=== PATIENT | male | born 1960 | race Caucasian/White ===

== ENCOUNTER 2017-12-29 17:43 | Emergency (ER) | payer BC ==
[2017-12-29 18:29] VITALS: BP 113/77
[2017-12-29] MEDS ORDERED: Tetan/Diph/Pertus SYR(Tdap)* 0.5 ML SYR(BOOSTRIX) use SYR IM ONE (18:48)
--- NOTE | 2017-12-29 18:50 | ED ---
GI/ HPI - HPI Summary HPI Summary: 57 yr old male with the complaint of itching and erosion on the shaft of the penis. He is complaining that he started itching his penis on Friday and he feels like he has a yeast infection. Denies being diabetic. Denies penile drainge, dysuria. Denies scrotal pain. Denies inguinal pain or swelling. No fever. He also states he scratched his left forearm yesterday on milk truck. Need TDAP updated. - History of Current Complaint Chief Complaint: UCSkin Time Seen by Provider: 12/29/17 18:41 Stated Complaint: PERSONAL Pain Intensity: 5 - Allergy/Home Medications Allergies/Adverse Reactions: Allergies Allergy/AdvReac Type Severity Reaction Status Date / Time No Known Allergies Allergy Verified 12/29/17 18:18 Home Medications: Home Medications Atorvastatin* [Lipitor*] 40 mg PO QPM 12/29/17 [History Confirmed 12/29/17] Sulfamethox/Trimethoprim DS* [Bactrim DS 800/160 TAB*] 1 tab PO BID 12/29/17 [ History Confirmed 12/29/17] PMH/Surg Hx/FS Hx/Imm Hx - Surgical History Surgery Procedure, Year, and Place: left knee medial meniscus 1986 Infectious Disease History: No Infectious Disease History: Reports: History Other Infectious Disease - STAP Denies: Traveled Outside the [place] in Last 30 Days - Social History Occupation: Employed Full-time Lives: With Family Alcohol Use: Rare Substance Use Type: Reports: None Smoking Status (MU): Heavy Every Day Tobacco Smoker Type: eCigarettes Amount Used/How Often: 3/4 ppd on & off since 17 yo Length of Time of Smoking/Using Tobacco: since age 17 Review of Systems Constitutional: Negative Positive: Rash - to skin All Other Systems Reviewed And Are Negative: Yes Physical Exam Triage Information Reviewed: Yes Vital Signs On Initial Exam: Initial Vitals Temp Pulse Resp BP Pulse Ox 98.2 F 57 16 113/77 100 12/29/17 18:20 12/29/17 18:20 12/29/17 18:20 12/29/17 18:20 12/29/17 18:20 Vital Signs Reviewed: Yes Appearance: Positive: Well-Appearing, No Pain Distress Skin: Positive: Warm, Other - rash to the skin on penis near sexton that is wet , eroded, and appears consitent with akshat. No ulcer. No drainage. No urethral drainage. no testicular pain, No scrotal swelling or pain. He has superficial laceration left forearm. Head/Face: Positive: Normal Head/Face Inspection Neck: Positive: Nontender Respiratory/Lung Sounds: Positive: Clear to Auscultation, Breath Sounds Present Cardiovascular: Positive: RRR. Negative: Murmur Male Genital Exam: Positive: other - akshat like rash/erosion near sexton of penis on the skin shaft.. Negative: no hernia, epididymal tenderness, inguinal tenderness, scrotum tenderness (R), scrotum tenderness (L), testicular tenderness (R), testicular tenderness (L), urethral discharge Musculoskeletal: Positive: Strength/ROM Intact Neurological: Positive: Sensory/Motor Intact, Alert, Oriented to Person Place, Time, CN Intact II-III Diagnostics - Vital Signs Vital Signs Temp Pulse Resp BP Pulse Ox 12/29/17 18:20 98.2 F 57 16 113/77 100 - Laboratory Lab Statement: Any lab studies that have been ordered have been reviewed, and results considered in the medical decision making process. GIGU Course/Dx - Course Course Of Treatment: 57 yr old with akshat on penis. Has superficial lac to left arm. TDAP updated. miconazole recommended. - Diagnoses Provider Diagnoses: Candidiasis of penis, Laceration Discharge - Discharge Plan Condition: Good Disposition: HOME Patient Education Materials: Laceration (ED), Jock Itch (ED) Referrals: James Powers [Primary Care Provider] - Additional Instructions: warehouse order picker miconazole cream and miconazole powder and use twice a day. Go to the ER for further evaluation.
== END 2017-12-29 19:05 | disposition home or self-care (01) ==
LOC: UCCORT 17:43
DX: B37.49 Other urogenital candidiasis (principal); S51.812A Laceration without foreign body of left forearm, initial encounter; W22.8XXA Striking against or struck by other objects, initial encounter; Y93.9 Activity, unspecified; Y92.9 Unspecified place or not applicable; F17.210 Nicotine dependence, cigarettes, uncomplicated
CPT/HCPCS: 90715; 96372; 99211; G0463

== ENCOUNTER 2018-03-04 20:50 | Emergency (ER) | payer SELFPAY ==
[2018-03-04 21:04] VITALS: BP 130/82
[2018-03-04] MEDS ORDERED: Sulfamethox/Trimethoprim DS 800/160* TAB PO ONE (21:15)
--- NOTE | 2018-04-13 09:04 | UC ---
Skin Complaint HPI - HPI Summary HPI Summary: Pt c/o f "spots" on back of nveck. Pt wears ad hard hat and states that it "rubs " against skin on neck. - History of Current Complaint Hx Obtained From: Patient Onset/Duration: Gradual Onset, Lasting Days, Still Present Skin Exposure Onset/Duration: Days Ago Timing: Constant Onset Severity: Mild Current Severity: Mild Pain Intensity: 0 Pain Scale Used: 0-10 Numeric Location: Discrete Character: Redness, Raised, Painful Aggravating Factor(s): Touch Alleviating Factor(s): Nothing Associated Signs & Symptoms: Positive: Tenderness <Cyndi Hunt NP - Last Filed: 04/15/18 10:16> <Alee Chris - Last Filed: 04/15/18 10:20> - History of Current Complaint Chief Complaint: UCRash Time Seen by Provider: 03/04/18 21:07 Stated Complaint: SKIN COMPLAINT - Allergy/Home Medications Allergies/Adverse Reactions: Allergies Allergy/AdvReac Type Severity Reaction Status Date / Time No Known Allergies Allergy Verified 12/29/17 18:18 Home Medications: Home Medications Ibuprofen 800 mg PO Q6HR 03/04/18 [History Confirmed 03/04/18] Review of Systems Constitutional: Negative Skin: Other - sores on neck Eyes: Negative ENT: Negative Respiratory: Negative Cardiovascular: Negative Gastrointestinal: Negative Genitourinary: Negative Motor: Negative Neurovascular: Negative Musculoskeletal: Negative Neurological: Negative Psychological: Negative Is Patient Immunocompromised?: No All Other Systems Reviewed And Are Negative: Yes <Cyndi Hunt NP - Last Filed: 04/15/18 10:16> PMH/Surg Hx/FS Hx/Imm Hx Previously Healthy: Yes - Surgical History Surgical History: Yes Surgery Procedure, Year, and Place: left knee medial meniscus 1986. TONSILLECTOMY - Social History Occupation: Employed Full-time Lives: With Family Alcohol Use: Rare Substance Use Type: None Smoking Status (MU): Former Smoker Type: eCigarettes Amount Used/How Often: 3/4 ppd on & off since 17 yo Length of Time of Smoking/Using Tobacco: since age 17 Have You Smoked in the Last Year: Yes When Did the Patient Quit Smoking/Using Tobacco: 6 MO AGO Household Exposure Type: Cigarettes - Immunization History Most Recent Tetanus Shot: 2008 <Cyndi Hunt NP - Last Filed: 04/15/18 10:16> Physical Exam Triage Information Reviewed: Yes Appearance: Well-Appearing Vital Signs: Initial Vital Signs Temp 98.1 F 03/04/18 20:59 Pulse 64 03/04/18 20:59 Resp 15 03/04/18 20:59 BP 130/82 03/04/18 20:59 Pulse Ox 99 03/04/18 20:59 Vital Signs Reviewed: Yes Eye Exam: Normal ENT Exam: Normal Dental Exam: Normal Neck exam: Other Neck: Positive: Other: - multiple sores on posterior neck Respiratory Exam: Normal Respiratory: Positive: No respiratory distress Musculoskeletal Exam: Normal Neurological Exam: Normal Psychological Exam: Normal Skin Exam: Other - multiple sores on neck <Cyndi Hunt NP - Last Filed: 04/15/18 10:16> Vital Signs: Initial Vital Signs Temp 98.1 F 03/04/18 20:59 Pulse 64 03/04/18 20:59 Resp 15 03/04/18 20:59 BP 130/82 03/04/18 20:59 Pulse Ox 99 03/04/18 20:59 <Alee Chris - Last Filed: 04/15/18 10:20> Course/Dx - Differential Diagnoses - Skin Complaint Differential Diagnoses: Cellulitis, MRSA - Diagnoses Provider Diagnoses: infected wound. possible MRSA <Cyndi Hunt NP - Last Filed: 04/15/18 10:16> Discharge - Sign-Out/Discharge Documenting (check all that apply): Discharge/Admit/Transfer - Billing Disposition and Condition Condition: STABLE Disposition: Home <Cyndi Hunt NP - Last Filed: 04/15/18 10:16> - Billing Disposition and Condition Condition: STABLE Disposition: Home <Alee Chris - Last Filed: 04/15/18 10:20> - Discharge Plan Condition: Stable Disposition: HOME Prescriptions: Sulfamethox/Trimethoprim DS* [Bactrim DS 800/160 TAB*] 1 tab PO Q12H #20 tab Patient Education Materials: Acute Wounds (DC) Referrals: Jigna ANN,James Tariq [Primary Care Provider] - If Needed Attestation Statement User Type: Provider - I was available for consult. This patient was seen by the HYUN. The patient was not presented to, seen by, or examined by me. -Luis Manuel <Alee Chris - Last Filed: 04/15/18 10:20> Addendum entered and electronically signed by Marilee POOLE,Cyndi Morgan NP 10:16:
== END 2018-03-04 21:22 | disposition home or self-care (01) ==
LOC: UCCORT 20:50
DX: S11.90XA Unspecified open wound of unspecified part of neck, initial encounter (principal); L08.9 Local infection of the skin and subcutaneous tissue, unspecified; X58.XXXA Exposure to other specified factors, initial encounter; Y93.9 Activity, unspecified; Y92.9 Unspecified place or not applicable; Z87.891 Personal history of nicotine dependence
CPT/HCPCS: 99212; A9270-GY; G0463

== ENCOUNTER 2019-01-19 09:24 | Emergency (ER) | payer BC ==
[2019-01-19 10:15] VITALS: BP 128/88
--- NOTE | 2019-01-19 10:28 | UC ---
General HPI - HPI Summary HPI Summary: WHITE SPOT ON BACK OF R WRIST FRIDAY, PT SQUEEZED IT AND WHITE STUFF CAME OUT. PT SQUEEZED IT TWICE MORE AND MORE DRAINAGE. TODAY, THE AREA AROUND THE SITE IS SWOLLEN AND PAINFUL. NO FEVER, JOINT PAIN OR HX MRSA BUT HAS RELATIVES WITH MRSA. NOTES HX OF SME SPOTS THAT WERE TX FOR ? MRSA. - History of Current Complaint Chief Complaint: UCSkin Stated Complaint: RIGHT ARM CONCERN Time Seen by Provider: 01/19/19 10:22 Hx Obtained From: Patient Onset/Duration: Gradual Onset Timing: Constant Pain Intensity: 6 Associated Signs & Symptoms: Negative: Fever - Allergy/Home Medications Allergies/Adverse Reactions: Allergies Allergy/AdvReac Type Severity Reaction Status Date / Time Sulfa (Sulfonamide Allergy Swelling Verified 01/19/19 10:13 Antibiotics) Of Face,Lips,& Throat Home Medications: Home Medications Ibuprofen TAB* [Motrin TAB* 800 MG] 800 mg PO ONCE 01/19/19 [History Confirmed 01/19/19] PMH/Surg Hx/FS Hx/Imm Hx Endocrine History: Dyslipidemia - Surgical History Surgical History: Yes Surgery Procedure, Year, and Place: left knee medial meniscus 1986. TONSILLECTOMY - Family History Known Family History: Positive: Non-Contributory - Social History Occupation: Employed Full-time Lives: With Family Alcohol Use: Rare Substance Use Type: None Smoking Status (MU): Former Smoker Type: eCigarettes Amount Used/How Often: 3/4 ppd on & off since 17 yo Length of Time of Smoking/Using Tobacco: since age 17 Have You Smoked in the Last Year: Yes When Did the Patient Quit Smoking/Using Tobacco: 6 MO AGO Household Exposure Type: Cigarettes - Immunization History Most Recent Tetanus Shot: 2008 Review of Systems All Other Systems Reviewed And Are Negative: Yes Skin: Positive: Rash Physical Exam Triage Information Reviewed: Yes Appearance: Well-Appearing Vital Signs: Initial Vital Signs Temp 97 F 01/19/19 10:12 Pulse 61 01/19/19 10:12 Resp 17 01/19/19 10:12 BP 128/88 01/19/19 10:12 Pulse Ox 98 01/19/19 10:12 Vital Signs Reviewed: Yes Eyes: Positive: Conjunctiva Clear ENT: Positive: Normal ENT inspection Respiratory: Positive: Lungs clear Cardiovascular: Positive: RRR Abdomen Description: Positive: Nontender Bowel Sounds: Positive: Present Musculoskeletal: Positive: ROM Intact Neurological: Positive: Alert Psychological: Positive: Age Appropriate Behavior Skin Exam: Normal Skin: Positive: Rashes - Dorsal R distal forearm-wrist junction with an approximate 3cm area of mild sweling, erythema and warmth. Central clear fluid spot, no white d/c. No epitrochlear adenopathy or streaking. wrist and hand have full s/v/m function. Course/Dx - Differential Dx - Multi-Symptom Differential Diagnoses: Other - no absecess or concern for septic joint. will cover with doxycycline and close f/u. - Diagnoses Provider Diagnosis: Cellulitis of wrist Discharge - Sign-Out/Discharge Documenting (check all that apply): Patient Departure All imaging exams completed and their final reports reviewed: No Studies - Discharge Plan Condition: Stable Disposition: HOME Prescriptions: DOXYcycline CAP(*) [DOXYcycline 100MG CAP(*)] 100 mg PO BID 10 Days #20 cap Patient Education Materials: Cellulitis (DC) Referrals: Jigna ANN,James Tariq [Primary Care Provider] - 2 Days - Billing Disposition and Condition Condition: STABLE Disposition: Home - Attestation Statements Provider Attestation: I was available for consult. This patient was seen by the HYUN. The patient was not presented to, seen by, or examined by me. -Luis Manuel
== END 2019-01-19 10:39 | disposition home or self-care (01) ==
LOC: UCCORT 09:24
DX: L03.111 Cellulitis of right axilla (principal); Z87.891 Personal history of nicotine dependence; Z88.2 Allergy status to sulfonamides
CPT/HCPCS: 87070; 87077; 87186; 87205; 99212; G0463